=== PATIENT | male | born 1950 | race Caucasian/White ===

== ENCOUNTER 2024-05-02 08:44 | Day surgery (SDC) | payer MEDICARE ==
[2024-04-30 16:00] VITALS: BMI 29.5
[2024-05-02 09:22] VITALS: RESP 18; TEMP 97.6
[2024-05-02] MEDS: IV FLUID CONTINUATION 1,000 ML IV ONE (09:28)
[2024-05-02] MEDS: LACTATED RINGERS 1,000 ML IV SCH (09:28)
[2024-05-02] MEDS ORDERED: PROPOFOL 10 MG/ML 20 ML VIAL IV ONE (10:08)
--- NOTE | 2024-05-02 10:24 | P.PCN ---
Date of Procedure: 05/02/24 Procedure(s) Performed: BRIEF HISTORY: Patient is a 74-year-old pleasant white male scheduled for an elective colonoscopy as a part of screening for colon cancer/family history of colon cancer. His mother was diagnosed with colon cancer at age 60. PROCEDURE PERFORMED: Colonoscopy. PREOPERATIVE DIAGNOSIS: Screening for colon cancer/family history of colon cancer. IV sedation per Anesthesia. PROCEDURE: After informed consent was obtained, the patient, was brought into the endoscopy unit. IV sedation was administered by Anesthesia under continuous monitoring. Digital rectal examination was normal. Initially the Olympus CF-160 flexible video colonoscope was then inserted in the rectum, gradually advanced into the cecum without any difficulty. Careful examination was performed as the scope was gradually being withdrawn. Ileocecal valve and the appendiceal orifice were visualized and appeared normal. Prep was fair. t. Mucosa of the cecum, ascending colon, transverse colon, descending colon, sigmoid colon, and rectum appeared normal. Sigmoid diverticulosis. Retroflexion was performed in the rectum and no lesions were seen. The patient tolerated the procedure well. IMPRESSION: Normal-appearing colon from rectum to cecum no evidence of colorectal neoplasia Moderate sigmoid diverticulosis. RECOMMENDATIONS: Findings of this examination were discussed with the patient as well as his family.. He was advised to have repeat colonoscopy in 5 years because of the family history of colon cancer
[2024-05-02 10:55] VITALS: BP 138/87; PULSE 71
== END 2024-05-02 11:24 | disposition home or self-care (01) ==
LOC: ORWHC2ENDO 08:44
PROVIDERS: ATTEND Internal Medicine Gastroenterology
DX: Z86.010 Personal history of colon polyps